=== PATIENT | female | born 1995 | race Caucasian/White ===

== ENCOUNTER → 2024-06-30 09:33 | Outpatient (REF) | payer SELFPAY | LOC: HWRAD 09:33 | PROVIDERS: ATTENDING PHYSICIAN Midwife | DX: Z36.87 Encounter for antenatal screening for uncertain dates (principal) | CPT/HCPCS: 76801 ==

== ENCOUNTER → 2024-09-01 09:33 | Outpatient (REF) | payer SELFPAY | LOC: PNTC 09:33 | PROVIDERS: ATTENDING PHYSICIAN Midwife | DX: Z34.90 Encounter for supervision of normal pregnancy, unspecified, unspecified trimester (principal) | CPT/HCPCS: 76805 ==